=== PATIENT | female | born 1950 | race Caucasian/White ===

== ENCOUNTER → 2018-12-09 | Outpatient (CLI) | payer MEDICARE | END | disposition home or self-care (01) | LOC: RAD 15:24 | PROVIDERS: ATTEND Family Medicine | DX: M79.604 Pain in right leg (principal) ==

== ENCOUNTER 2021-06-13 13:20 | Outpatient (CLI) | payer MEDICARE | END 2021-06-13 23:59 | disposition home or self-care (01) | LOC: CFH 13:20 → CVU 23:59 | PROVIDERS: ATTEND Registered Nurse | DX: I08.2 Rheumatic disorders of both aortic and tricuspid valves (principal); J84.10 Pulmonary fibrosis, unspecified; R06.02 Shortness of breath; I25.10 Atherosclerotic heart disease of native coronary artery without angina pectoris; J98.11 Atelectasis; Z80.1 Family history of malignant neoplasm of trachea, bronchus and lung; Z77.22 Contact with and (suspected) exposure to environmental tobacco smoke (acute) (chronic); Z87.891 Personal history of nicotine dependence | CPT/HCPCS: 71250; 93306 ==